=== PATIENT | male | born 1965 | race Caucasian/White ===

== ENCOUNTER 2023-04-21 13:23 | Emergency (ER) | payer SELFPAY ==
[~2023-04-21] VITALS: Ht 175.3 cm; Wt 76.2 kg
[2023-04-21 13:27] VITALS: O2SAT 96
[2023-04-21] MEDS ORDERED: ASPIRIN 325 MG TABLET ONE (13:58)
[2023-04-21] MEDS ORDERED: ASPIRIN 325 MG TABLET PO ONE (14:00)
[2023-04-21 14:52] LABS: CALCIUM 9.4 mg/dL (8.5-10.1); CREATININE 1.3 mg/dL (0.6-1.3)
[2023-04-21 14:58] LABS: BASOPHILS % (AUTO) 0.2 % (0.0-2.0); EOSINOPHILS % (AUTO) 0.1 % (0.0-7.0); HEMATOCRIT 47.9 % (36.7-47.1); HEMOGLOBIN 16.5 g/dL (12.5-16.3); LYMPHOCYTES # (AUTO) 0.8 K/uL (0.8-4.8); LYMPHOCYTES % (AUTO) 9.3 % (20.5-51.5); MEAN CORPUSCULAR HEMOGLOBIN 32.6 uug (23.8-33.4); MEAN CORPUSCULAR HGB CONC 34 g/dL (32.5-36.3); MONOCYTES # (AUTO) 0.3 K/uL (0.1-1.30); MONOCYTES % (AUTO) 3.3 % (0.0-11.0); NEUTROPHILS # (AUTO) 7.4 K/uL (1.8-8.9); NEUTROPHILS % (AUTO) 87.1 % (38.5-71.5); PLATELET COUNT (AUTO) 183 K/uL (152-348); RED BLOOD CELL COUNT(AUTO) 5.04 MIL/uL (4.06-5.63); RED CELL DISTRIBUTION WIDTH 13.3 % (12.1-16.2); WHITE BLOOD COUNT (AUTO) 8.5 K/uL (3.6-10.2)
[2023-04-21 15:05] LABS: ALBUMIN 3.8 g/dL (3.4-5.0); BILIRUBIN,TOTAL 0.5 mg/dL (0.2-1.0); TOTAL PROTEIN, SERUM 7.2 g/dL (6.4-8.2)
== END 2023-04-21 14:15 | disposition short-term general hospital (02) ==
LOC: ER 13:23
DX: I21.3 ST elevation (STEMI) myocardial infarction of unspecified site (principal); R07.89 Other chest pain
CPT/HCPCS: 36415; 84484; 85025; A4663